=== PATIENT | male | born 1965 | race Caucasian/White ===

== ENCOUNTER 2017-12-22 08:16 | Emergency (ER) | payer MEDICAID, OTHER ==
[~2017-12-22] VITALS: Ht 177.8 cm; Wt 72.0 kg
[~2017-12-22 08:16] MED LIST: KEPP500 PO; LAM25 PO
[2017-12-22] MEDS ORDERED: SODIUM CHLORIDE 0.9% 1,000 ML IV ONE (08:23)
[2017-12-22 09:02] LABS: BASOPHILS % 0.5 % (0.0-2.0); EOSINOPHILS % 0.1 % (0.0-5.0); HEMATOCRIT. 38.1 % (42.0-52.0); HEMOGLOBIN. 12.9 g/dL (14.0-18.0); LYMPHOCYTES % 16.3 % (20.0-50.0); MEAN CORPUSCULAR VOLUME 94.7 fL (80.0-94.0); MONOCYTES % 7.3 % (2.0-8.0); NEUTROPHILS % 75.8 % (40.0-76.0); RED BLOOD CELL COUNT 4.02 mill/uL (4.7-6.1)
[2017-12-22 09:12] LABS: CHLORIDE 100 mEq/L (98-107); ETHANOL BLOOD 71 mg/dL
[2017-12-22 09:14] LABS: AMMONIA 38 uMol/L (<32)
[2017-12-22 09:19] LABS: CLARITY URINE CLEAR (CLEAR); COLOR URINE YELLOW (YELLOW); KETONES URINE TRACE (NEGATIVE); LEUKOCYTE ESTERASE URINE NEGATIVE (NEGATIVE); NITRITE URINE NEGATIVE (NEGATIVE); OCCULT BLOOD URINE 2+ (NEGATIVE); PH URINE 5.5 (4.5-8.0); PROTEIN URINE TRACE (NEGATIVE); SPECIFIC GRAVITY URINE 1.022 (1.005-1.030)
[2017-12-22 10:14] LABS: *AMPHETAMINES SCREEN URINE NEGATIVE (NEGATIVE); *BARBITURATES SCREEN URINE NEGATIVE (NEGATIVE); *BENZODIAZEPINES SCREEN URINE NEGATIVE (NEGATIVE); *COCAINE SCREEN URINE NEGATIVE (NEGATIVE); CANNABINOID URINE SCREEN NEGATIVE (NEGATIVE); METHADONE URINE SCREEN NEGATIVE (NEGATIVE); OPIATES URINE SCREEN NEGATIVE (NEGATIVE); PHENCYCLIDINE URINE SCREEN NEGATIVE (NEGATIVE)
[2017-12-22] MEDS ORDERED: LEVETIRACETAM 500MG PREMIX 100 ML IV ONE (11:00)
[2017-12-22] MEDS ORDERED: LORAZEPAM 2MG/ML CPJ IV ONE (11:00)
[2017-12-22] MEDS ORDERED: LORAZEPAM 2MG/ML CPJ ONE (11:06)
[2017-12-22 20:45] VITALS: BP 119/77
== END 2017-12-22 20:50 | disposition home or self-care (01) ==
LOC: ER 08:25
DX: G40.509 Epileptic seizures related to external causes, not intractable, without status epilepticus (principal); F10.239 Alcohol dependence with withdrawal, unspecified; Y90.3 Blood alcohol level of 60-79 mg/100 ml; Z59.0 Homelessness
CPT/HCPCS: 36415; 71045; 80053; 80305; 80307; 80329; 81001; 82140; 82962; 84443; 84484; 85025; 93005; 96361; 96365; 96375; 99285; G0482; J1953; J2060; J7030; Z7610